=== PATIENT | female | born 1995 | race American Indian/Alaskan Native ===

== ENCOUNTER 2019-09-17 19:11 | Emergency (ER) | payer SELFPAY | END 2019-09-17 19:30 | disposition left against medical advice (07) | LOC: ED 19:11 | DX: R07.9 Chest pain, unspecified (principal); Z53.21 Procedure and treatment not carried out due to patient leaving prior to being seen by health care provider ==

== ENCOUNTER 2020-04-22 19:44 | Emergency (ER) | payer OTHER ==
[2020-04-22 19:59] VITALS: BP 129/78
--- NOTE | 2020-04-22 20:40 | XRay Report ---
Right hand-4 views INDICATION: right hand pain. COMPARISON: None. IMPRESSION: No acute osseous or soft tissue abnormality. No significant DJD. 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 Signer Name: Dong Reyes MD Signed: 04/22/2020 8:35 PM Workstation Name: [id number]
== END 2020-04-22 23:27 | disposition left against medical advice (07) ==
LOC: ED 19:44
DX: M79.644 Pain in right finger(s) (principal); M25.531 Pain in right wrist; Z53.21 Procedure and treatment not carried out due to patient leaving prior to being seen by health care provider